=== PATIENT | male | born 1995 | race Caucasian/White ===

== ENCOUNTER 2017-02-02 08:33 | Day surgery (SDC) | payer BC ==
[~2017-02-02 08:33] MED LIST: Dexamethasone 4 MG/ML 5 ML MDV ONE; EPINEPHrine 1 MG/ML SDV ONE; HYDROmorphone 2 MG/ML Syringe ONE; Lactated Ringers 1,000 ML IV SCH; Lidocaine 2% 5 ML SDV ONE; Midazolam 1 MG/ML 2 ML SDV ONE; Ondansetron 4 MG/2 ML SDV ONE; Oxymetazoline 0.05% Nasal Spray 15 ML Bottle ONE; Propofol 200 MG/20 ML SDV ONE; fentaNYL 100 MCG/2 ML SDV ONE
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
[2017-02-02] MEDS ORDERED: Sugammadex Sodium 200 MG/2 ML VIAL ONE (10:51)
[2017-02-02] MEDS ORDERED: Lidocaine 2% 5 ML SDV ONE (10:53)
[2017-02-02] MEDS ORDERED: Midazolam 1 MG/ML 2 ML SDV ONE (10:53)
[2017-02-02] MEDS ORDERED: Propofol 200 MG/20 ML SDV ONE ×2 (10:53→11:56)
[2017-02-02] MEDS ORDERED: fentaNYL 250 MCG/5 ML SDV ONE (10:53)
[2017-02-02] MEDS ORDERED: Dexamethasone 4 MG/ML 5 ML MDV ONE (10:56)
[2017-02-02] MEDS ORDERED: Ondansetron 4 MG/2 ML SDV ONE (10:56)
[2017-02-02] MEDS ORDERED: Rocuronium 10 MG/ML 10 ML Syringe ONE (10:56)
[2017-02-02] MEDS ORDERED: Bupivacaine 25%/EPINEPHrine/PF 30 ML ONE (10:57)
[2017-02-02] MEDS ORDERED: Scopolamine 1.5 MG Transdermal Patch ONE (10:57)
[2017-02-02] MEDS ORDERED: HYDROmorphone 2 MG/ML Syringe ONE (11:00)
--- NOTE | 2017-02-02 11:05 | PCM.HPR ---
H & P Addendum review - H & P Addendum Review Date of Original H & P: 01/18/17 Date Reviewed: 02/02/17 Time Reviewed: 10:35 Patient was Examined: No Changes
--- NOTE | 2017-02-02 11:07 | PCM.OPNOTE ---
- General Post-Op/Procedure Note Date of Surgery/Procedure: 02/02/17 Condition: Good Free Text/Narrative:: Diagnosis: Sore throats. tonsilloliths, snoring, sleep disordered breathing, elongated uvula Procedure: Bilateral tonsillectomy; partial uvulectomy Surgeon: Antonette Guidry MD Anesthesia: GA Anesthesiologist: Justin HOLBROOK Date of procedure:02/02/2017 Indications: Sore throats. tonsilloliths, snoring, sleep disordered breathing, elongated uvula Findings: Tien Gr 2 tonsils, elongated uvula Operation Details: An informed consent was obtained. A time out was performed and the patient was brought back to the operating room. General anesthesia was administered with an endotracheal tube. The table was turned 90 away from the anesthesia cart. Patient was appropriately positioned on the operating table. An appropriately sized Rj Martel mouth gag was positioned and suspended from a Cisneros stand. Base of uvula was infiltrated with 0.25% Bupivacaine with 1: 200 000 epinephrine - 1.5 mls was used. The uvula was grasped with t forceps and using a point bovie tip at a setting of 20 cut and 15 coagulation - uvula was excised leaving 5 mm at the base. Hemostasis was achieved with coagulation. The mucosa was sutured with 2.0 vicryl. The right tonsil was grasped with a Adán Brown tonsil holding forceps, upper pole dissected with bipolar forceps. The lower pole was clamped with a negus forceps and ligated with a 2.0 silk tie. The tonsillar fossa was packed with an oxymetazoline 0.05% soaked 2 x 2 gauze. The left tonsil was then similarly dissected and clamped and ligated and fossa packed with an oxymetazoline 0.05% soaked 2 x 2 gauze. Hemostasis was achieved bilaterally with the bipolar cautery at a setting of 10 W. Bilateral fossae were irrigated with warm saline and hemostasis was ensured. Postnasal space was suctioned clear. This concluded the procedure. Mouth gag was removed the oral cavity was inspected. Lips gums and teeth were intact. Lubricating jelly was applied to the lips. The patient was turned over to the anesthesiologist for recovery. Specimens: Uvula, bilateral tonsils IV fluids: 1500 ml Blood loss : 20 ml Blood products: nil Disposition: PACU for recovery Follow up: As planned.
[2017-02-02] MEDS ORDERED: oxyCODONE 5 MG Tab PO PRN (11:08)
[2017-02-02] MEDS ORDERED: Ibuprofen 400 MG Tab PO SCH (11:15)
[2017-02-02] MEDS ORDERED: Acetaminophen 325 MG Tab PO SCH (11:15)
[2017-02-02] MEDS ORDERED: fentaNYL 100 MCG/2 ML SDV IVPUSH PRN (11:40)
--- NOTE | 2017-02-02 13:22 | PCM.POSTAN ---
POST ANESTHESIA ASSESSMENT - MENTAL STATUS Mental Status: Alert, Oriented - RESPIRATORY Respiratory Status: Respiratory Rate WNL, Airway Patent, O2 Saturation Stable - CARDIOVASCULAR CV Status: Pulse Rate WNL, Blood Pressure Stable - GASTROINTESTINAL GI Status: No Symptoms - PAIN Pain Score: 6 (pointing to his throat) - POST OP HYDRATION Hydration Status: Adequate & Stable
[2017-02-02] MEDS ORDERED: Acetaminophen 1,000 MG in Premix Bag 1 BAG IV ONE (13:30)
--- NOTE | 2017-02-02 14:48 | PCM48HPAN ---
Post Anesthesia Note - EVALUATION WITHIN 48HRS OF ANESTHETIC Vital Signs in Normal Range: Yes Patient Participated in Evaluation: Yes Respiratory Function Stable: Yes Airway Patent: Yes Cardiovascular Function Stable: Yes Hydration Status Stable: Yes Pain Control Satisfactory: Yes Nausea and Vomiting Control Satisfactory: Yes Mental Status Recovered: Yes - COMMENTS/OBSERVATIONS Free Text/Narrative:: Doing well with oral oxycodone and no nousea.
== END 2017-02-02 15:55 | disposition home or self-care (01) ==
LOC: MW.SDS 08:33
PROVIDERS: ATTEND Otolaryngology
DX: J03.91 Acute recurrent tonsillitis, unspecified (principal); J35.8 Other chronic diseases of tonsils and adenoids; Q38.6 Other congenital malformations of mouth; R26.9 Unspecified abnormalities of gait and mobility; M21.512 Acquired clawhand, left hand; G83.21 Monoplegia of upper limb affecting right dominant side; G47.30 Sleep apnea, unspecified; F41.9 Anxiety disorder, unspecified; Z86.718 Personal history of other venous thrombosis and embolism; Z82.49 Family history of ischemic heart disease and other diseases of the circulatory system; Z81.8 Family history of other mental and behavioral disorders; Z88.5 Allergy status to narcotic agent; Z88.0 Allergy status to penicillin; Z79.899 Other long term (current) drug therapy; Z95.828 Presence of other vascular implants and grafts; Z98.890 Other specified postprocedural states
CPT/HCPCS: 42140; 42826; A9270; C9399; J1100; J1170; J2250; J2405; J3010; J7120; 00170; 88302; 88304; J0171; J2704